=== PATIENT | male | born 1985 | race Caucasian/White ===

== ENCOUNTER 2018-10-04 17:16 | Emergency (ER) | payer BC ==
[2018-10-04] MEDS ORDERED: Bacitracin Oint 1 GM U/D Packet TOP ONE (18:30)
[2018-10-04] MEDS ORDERED: Diphtheria,Pertussis(Acell),Tetanus Vaccine 0.5 ML SDV IM ONE (18:30)
--- NOTE | 2018-10-04 18:36 | EDM.PDOC ---
ED HPI GENERAL MEDICAL PROBLEM - General Chief Complaint: Laceration Stated Complaint: FISH HOOK Time Seen by Provider: 10/04/18 18:31 - History of Present Illness INITIAL COMMENTS - FREE TEXT/NARRATIVE: 33 years old male patient presented with a chief complaint of fishhook to his left ear. Large thick fishhook, embedded in his left external auricle. No other injuries Left Ear Pain Score (Numeric/FACES): 3 - Related Data Allergies Allergy/AdvReac Type Severity Reaction Status Date / Time No Known Allergies Allergy Verified 10/04/18 17:33 Home Meds: Home Meds NK [No Known Home Meds] 10/04/18 [History] Past Medical History - Past Health History Medical/Surgical History: Denies Medical/Surgical History Social & Family History - Tobacco Use Smoking Status *Q: Never Smoker - Caffeine Use Caffeine Use: Reports: Coffee - Alcohol Use Days Per Week of Alcohol Use: 2 Number of Drinks Per Day: 2 Total Drinks Per Week: 4 - Recreational Drug Use Recreational Drug Use: No ED ROS GENERAL - Review of Systems Review Of Systems: ROS reveals no pertinent complaints other than HPI. ED EXAM, SKIN/RASH Exam: See Below Exam Limited By: No Limitations General Appearance: Alert, No Apparent Distress Ears: Other (Large fishhook embedded in his left external auricle, going through the cartilage and through the ear pinnae. Bleeding controlled.) Head: Atraumatic, Normocephalic Neck: Normal Inspection Respiratory/Chest: No Respiratory Distress, Lungs Clear, Normal Breath Sounds Cardiovascular: Normal Peripheral Pulses, Regular Rate, Rhythm Neurological: Alert, Oriented, CN II-XII Intact, Normal Cognition, No Motor/ Sensory Deficits Course - Vital Signs Last Recorded V/S: Last Vital Signs Temp 36.9 C 10/04/18 17:35 Pulse 90 10/04/18 17:35 Resp 16 10/04/18 17:35 BP 143/98 H 10/04/18 17:35 Pulse Ox 99 10/04/18 17:35 - Orders/Labs/Meds Meds: Medications Discontinued Medications Generic Name Dose Route Start Last Admin Trade Name Freq PRN Reason Stop Dose Admin Lidocaine HCl 5 ml 10/04/18 18:06 Xylocaine-Mpf 1% INJECT 10/04/18 18:07 ONETIME ONE - Radiology Interpretation Free Text/Narrative:: Patient was seen and examined shortly after arrival. Stable. Given a tetanus shot. Risk and benefits of the procedure discussed with the patient including but not limited to local injury of the surrounding structure, infection, bleeding, poor healing, etc. Verbal consent obtained. Area was cleaned. 1 mL of lidocaine without epi systolic infiltration. [place] [facility] was cut , and pushed through the skin and pulled from the other side. Patient tolerated the procedure well. No complication. Bacitracin applied. Stable for discharge. Advised to keep it dry and clean, daily bacitracin, come back if symptom worsen , close follow-up with PCP, given 5 day course of prophylactic Keflex. Stable for discharge. Departure - Departure Time of Disposition: 18:36 Disposition: Home, Self-Care 01 Condition: Good Clinical Impression: Fish hook injury of cheek - Discharge Information *PRESCRIPTION DRUG MONITORING PROGRAM REVIEWED*: Not Applicable *COPY OF PRESCRIPTION DRUG MONITORING REPORT IN PATIENT SHIN: Not Applicable Instructions: Puncture Wound, [id number] Referrals: PCP,None [Primary Care Provider] - Additional Instructions: Advised to keep it dry and clean, daily bacitracin, come back if symptom worsen , close follow-up with PCP, given 5 day course of prophylactic - Assessment/Plan Plan: Advised to keep it dry and clean, daily bacitracin, come back if symptom worsen , close follow-up with PCP, given 5 day course of prophylactic
== END 2018-10-04 18:43 | disposition home or self-care (01) ==
LOC: JP.ED 17:16
DX: S00.452A Superficial foreign body of left ear, initial encounter (principal); Z23 Encounter for immunization; W45.8XXA Other foreign body or object entering through skin, initial encounter
CPT/HCPCS: 90471; 90715; 99282; J2001